=== PATIENT | male | born 2000 | race Caucasian/White ===

== ENCOUNTER 2024-07-17 00:56 | Emergency (ER) | payer SELFPAY ==
[2024-07-17] MEDS ORDERED: Ondansetron PF 4 MG/2 ML Vial ONE (01:35)
== END 2024-07-17 05:55 | disposition home or self-care (01) ==
LOC: ERS 00:56
DX: T40.711A Poisoning by cannabis, accidental (unintentional), initial encounter (principal); R11.2 Nausea with vomiting, unspecified; I10 Essential (primary) hypertension
CPT/HCPCS: 93005; 96374; J2405